=== PATIENT | male | born 1975 | race Caucasian/White ===

== ENCOUNTER 2016-08-25 08:40 | Emergency (ER) | payer BC ==
--- NOTE | ~2016-08-25 | CT105 ---
[facility] A Service of [facility] RADIOLOGY TEXT RESULTS PATIENT: DAIVD CHARLES LOCATION: SED : 79 UNIT #: [id number] AGE: [address]: David Montalvo MD SEX: M ORDER DR: [id number] [place] [id number] E MR#: [id number] Acc #: [id number] NAME: DAVID CHARLES : 1975 SEX: M STUDY DATE/TIME: 08/25/2016 8:55 UNIT: SED ROOM: STUDY DESCRIPTION: CT Pelvis W Cont Attending Physician: David Montalvo M.D. Referring Physician: David Montalvo M.D. Ordering Physician: David Montalvo M.D. Primary Care Physician: Mitchell Lewis M.D. MEDICAL IMAGING REPORT This report is preliminary unless electronic signature is present. EXAM CT pelvis, 08/25 HISTORY History of rectal abscess for 5 years. Patient has rectal pain that started Monday of this week. The patient reports pain feels similar to prior abscesses. TECHNIQUE Axial images were obtained through the pelvis following IV contrast administration. Multiplanar reformats were obtained. This CT exam was performed with one or more of the following radiation dose reduction techniques: automatic exposure control, adjustment of mA and/or kV according to patient size, and iterative reconstruction. COMPARISON 01/26/2012 FINDINGS The urinary bladder is normal. No free fluid is seen. The GI tract, including the appendix, is normal. There is a small fat containing left inguinal hernia. There is some soft tissue change in the right perirectal area at the site of prior abscess. I suspect there is a small underlying abscess in this location but it is not well defined at this time. The area of abnormality measures approximately 4.2 x 2.6 x about 3.0 cm. This is presumably a site of developing abscess although a discrete fluid collection is not seen at this time. IMPRESSION 1. Soft tissue change in the right perirectal region in the same location as the prior abscess. This is probably a developing abscess [facility] A Service of [facility] & [facility] RADIOLOGY TEXT RESULTS PATIENT: DAVID CHARLES LOCATION: SED : 79 UNIT #: [id number] AGE: [address]: David Montalvo MD SEX: M ORDER DR: although a discrete drainable fluid collection is not clearly seen at this time. 2. Small fat containing left inguinal hernia. 3. Otherwise negative pelvis. Dictated by... Andry Beaver Jr., M.D. THIS IS AN ELECTRONICALLY VERIFIED REPORT Andry Beaver Jr., M.D. at 08/25/2016 12:31 PM MISSY/scott TD: 08/25/2016 10:18 JOB #: [id number] MEDICAL IMAGING REPORT Page 1 of 1
[~2016-08-25 08:40] MED LIST: AUGMENTIN PO; FAMVIR500 MG PO; NO MEDICATIONS; NORCO 7.5-3251 EACH PO; PERCOCET5/325 PO; PROCTOSOL-HC28.35 GM TOP; TOBRAMYCIN5 ML OD; ZYRTEC10 M1 PO
[2016-08-25 08:43] LABS: BASOPHIL# 0.1 X10e3 (0-0.3); BASOPHIL% 0.9 % (0-2.5); DIFF IND NO; EOSINOPHIL# 0.2 X10e3 (0-0.7); EOSINOPHIL% 1.8 % (0.0-7.0); HEMATOCRIT 46.2 % (38.0-50.0); LYMPHOCYTE# 1.8 X10e3 (1.0-3.5); LYMPHOCYTE% 17.8 % (17.0-45.0); MEAN CORPUSCULAR HEMOGLOBIN 30.1 PG (28-34); MEAN CORPUSCULAR HGB CONC 34.5 g/dL (30-36); MEAN PLATELET VOLUME 8.6 FL (6.5-11.5); MONOCYTE# 0.6 X10e3 (0-1.0); MONOCYTE% 6.1 % (3.0-12.0); NEUTROPHIL# 7.3 X10e3 (1.5-7.1); NEUTROPHIL% 73.4 % (40-75); PLATELET COUNT 221 X10e3 (140-420); RED BLOOD COUNT 5.31 X10e (3.90-5.60); RED CELL DISTRIBUTION WIDTH 13.3 % (11.0-15.5); WHITE BLOOD COUNT 9.9 X10e3 (4.0-10.5)
[2016-08-25 08:59] LABS: BUN/CREATININE RATIO 23.33; CALCIUM SERUM 9.3 mg/dL (8.4-10.2); CREATININE SERUM 0.9 mg/dL (0.6-1.4)
== END 2016-08-25 10:16 | disposition home or self-care (01) ==
LOC: SED 08:40
PROVIDERS: Emergency Medicine
DX: K61.1 Rectal abscess (principal); J45.909 Unspecified asthma, uncomplicated; Z98.890 Other specified postprocedural states
CPT/HCPCS: 36415; 72193; 80048; 85025; 96365; 99284; Q9967